=== PATIENT | female | born 1995 | race Caucasian/White ===

== ENCOUNTER 2024-11-04 10:20 | Emergency (ER) | payer SELFPAY ==
[~2024-11-04] VITALS: Ht 157.4 cm; Wt 52.2 kg
[2024-11-04] MEDS ORDERED: MELOXICAM15 MG PO (10:49)
[2024-11-04] MEDS ORDERED: CLINDAMYCIN HC300 MG PO (10:49)
[2024-11-04] MEDS ORDERED: Acetaminophen/Oxycodone 5 MG/325 MG TABLET PO ONE (10:50)
[2024-11-04] MEDS ORDERED: CLINDAMYCIN HCL 300 MG CAPSULE PO ONE (10:50)
== END 2024-11-04 10:59 | disposition home or self-care (01) ==
LOC: ED 10:20
DX: K04.7 Periapical abscess without sinus (principal); Z88.0 Allergy status to penicillin; Z91.048 Other nonmedicinal substance allergy status; Z91.040 Latex allergy status

== ENCOUNTER 2025-05-03 09:39 | Emergency (ER) | payer SELFPAY ==
[~2025-05-03] VITALS: Ht 157.4 cm; Wt 54.4 kg
[~2025-05-03 09:39] MED LIST: CLINDAMYCIN HC300 MG PO; MELOXICAM15 MG PO
[2025-05-03 10:12] LABS: BILIRUBIN Negative (Negative); BLOOD Trace-Lysed (Negative); CLARITY Clear (Clear); COLOR Yellow (Yellow); KETONE Negative (Negative); LEUKO ESTERASE 3+ (Negative); NITRITE Negative (Negative); PH 6.0 (4.5-8.0); SPECIFIC GRAVITY <= 1.005 (1.001-1.030); UROBILINOGEN 1.0 E.U./dl (0.0-1.0)
[2025-05-03 10:26] LABS: BACTERIA 1+; WBC 41-50 wbc/hpf (0-5)
[2025-05-03] MEDS ORDERED: PYRIDIUM200 M1 PO (10:30)
[2025-05-03] MEDS ORDERED: Ondansetron4 MG PO (10:30)
[2025-05-03] MEDS ORDERED: MACROBID100 M1 PO (10:30)
== END 2025-05-03 10:53 | disposition home or self-care (01) ==
LOC: ED 09:39
PROVIDERS: Emergency Medicine
DX: N39.0 Urinary tract infection, site not specified (principal); Z88.0 Allergy status to penicillin; Z88.1 Allergy status to other antibiotic agents; Z91.040 Latex allergy status; Z88.8 Allergy status to other drugs, medicaments and biological substances

== ENCOUNTER 2025-07-02 21:31 | Emergency (ER) | payer SELFPAY ==
[~2025-07-02] VITALS: Ht 157.4 cm; Wt 52.2 kg
[~2025-07-02 21:31] MED LIST changes: +MACROBID100 M1 PO; +Ondansetron4 MG PO; +PYRIDIUM200 M1 PO
[2025-07-02] MEDS ORDERED: MELOXICAM7.5 MG PO (23:29)
== END 2025-07-02 23:45 | disposition home or self-care (01) ==
LOC: ED 21:31
DX: S63.502A Unspecified sprain of left wrist, initial encounter (principal); Z88.0 Allergy status to penicillin; Z91.048 Other nonmedicinal substance allergy status; Z88.1 Allergy status to other antibiotic agents; Z91.040 Latex allergy status; Z79.899 Other long term (current) drug therapy; W22.8XXA Striking against or struck by other objects, initial encounter; Y93.89 Activity, other specified; Y92.89 Other specified places as the place of occurrence of the external cause; Y99.8 Other external cause status